=== PATIENT | male | born 1995 | race Caucasian/White ===

== ENCOUNTER 2017-10-25 17:40 | Outpatient (CLI) | payer SELFPAY | END 2017-10-25 17:41 | disposition EMS.NT | LOC: EMS 17:40 | PROVIDERS: ATTEND Surgery | DX: Z04.1 Encounter for examination and observation following transport accident (principal); R07.9 Chest pain, unspecified; V43.51XA Car driver injured in collision with sport utility vehicle in traffic accident, initial encounter; Y92.413 State road as the place of occurrence of the external cause ==